=== PATIENT | female | born 1950 | race Caucasian/White ===

== ENCOUNTER → 2016-03-24 | Outpatient (CLI) | payer BC ==
--- NOTE | 2016-03-24 15:35 | MAMMOGRAPHY REPORT ---
BILATERAL DIGITAL SCREENING MAMMOGRAM WITH CAD: 03/24/2016 CLINICAL HISTORY: Routine screening. Patient has no complaints. TECHNIQUE: Current study was also evaluated with a Computer Aided Detection (CAD) system. Bilatera l CC and MLO views were obtained. COMPARISON: Comparison is made to exams dated: 03/23/2015 mammogram, 03/20/2014 mammogram, 03/19/2013 mammogram, 01/30/2012 mammogram, 01/24/2011 mammogram, and 01/21/2010 mammogram - [facility]. BREAST COMPOSITION: The tissue of both breasts is heterogeneously dense, which may obscure small ma sses. FINDINGS: No suspicious masses, calcifications, or areas of architectural distortion are noted in e ither breast. There has been no significant interval change compared to prior exams. Asymmetry in t he right medial breast on the cc view is stable compared to prior exams. Scattered bilateral benign- appearing calcifications are again noted. IMPRESSION: ACR BI-RADS CATEGORY 2: BENIGN There is no mammographic evidence of malignancy. A 1 year screening mammogram is recommended. The p atient will receive written notification of the results. Approximately 10% of breast cancers are not detected with mammography. A negative mammographic repor t should not delay biopsy if a clinically suggestive mass is present. Bhargavi Grier M.D. /:03/24/2016 14:59:39 Towboat Operator: Tayler ALFARO(Carmelo)(Bess)(BD), [facility] letter sent: Normal 1/2 BI-RADS Code: ACR BI-RADS Category 2: Benign
== END | disposition home or self-care (01) ==
LOC: C.MAMM 13:16
PROVIDERS: ATTEND Obstetrics & Gynecology
DX: Z12.31 Encounter for screening mammogram for malignant neoplasm of breast (principal)

== ENCOUNTER → 2017-03-28 | Outpatient (CLI) | payer OTHER ==
--- NOTE | 2017-03-29 15:39 | MAMMOGRAPHY REPORT ---
BILATERAL DIGITAL SCREENING MAMMOGRAM TOMOSYNTHESIS WITH CAD: 03/28/2017 CLINICAL HISTORY: Routine screening. Patient has no complaints. TECHNIQUE: Breast tomosynthesis in addition to standard 2D mammography was performed. Current study was also evaluated with a Computer Aided Detection (CAD) system. COMPARISON: Comparison is made to exams dated: 03/24/2016 mammogram, 03/23/2015 mammogram, 03/20/2014 m ammogram, 03/19/2013 mammogram, 01/24/2011 mammogram, and 01/30/2012 mammogram - [facility]. BREAST COMPOSITION: The tissue of both breasts is heterogeneously dense, which may obscure small mas ses. FINDINGS: There is stable asymmetry in the superior left breast, and 2 benign-appearing calcification s in the lateral left breast. Stable asymmetry in the medial right breast on the CC view. No new chapin spicious mass, architectural distortion or cluster of suspicious microcalcifications is seen. IMPRESSION: ACR BI-RADS CATEGORY 1: NEGATIVE There is no mammographic evidence of malignancy. A 1 year screening mammogram is recommended. The pa tient will receive written notification of the results. Approximately 10% of breast cancers are not detected with mammography. A negative mammographic report should not delay biopsy if a clinically suggestive mass is present. Priti Claudio M.D. ay/:03/28/2017 15:07:20 Assistant Scientist: Fabiola ALFARO(Carmelo)(Bess), [facility] letter sent: Normal 1/2 BI-RADS Code: ACR BI-RADS Category 1: Negative
== END | disposition home or self-care (01) ==
LOC: C.MAMM 13:05
PROVIDERS: ATTEND Obstetrics & Gynecology
DX: Z12.31 Encounter for screening mammogram for malignant neoplasm of breast (principal)